=== PATIENT | female | born 1945 | race Caucasian/White ===

== ENCOUNTER → 2018-06-13 | Outpatient (CLI) | payer OTHER | LOC: RAD 01:16 | DX: Z12.31 Encounter for screening mammogram for malignant neoplasm of breast (principal) ==

== ENCOUNTER → 2019-06-17 | Outpatient (CLI) | payer OTHER | LOC: NUC 03:42 | DX: Z12.31 Encounter for screening mammogram for malignant neoplasm of breast (principal); M85.89 Other specified disorders of bone density and structure, multiple sites; Z78.0 Asymptomatic menopausal state ==

== ENCOUNTER → 2020-07-01 | Outpatient (CLI) | payer OTHER | LOC: BC 11:30 | PROVIDERS: ATTEND Obstetrics & Gynecology | DX: Z12.31 Encounter for screening mammogram for malignant neoplasm of breast (principal) ==

== ENCOUNTER → 2020-07-06 | Outpatient (CLI) | payer OTHER | LOC: ULTRA 11:25 | PROVIDERS: ATTEND Obstetrics & Gynecology | DX: N60.01 Solitary cyst of right breast (principal) ==

== ENCOUNTER → 2021-01-13 | Outpatient (CLI) | payer OTHER | LOC: BC 08:45 | PROVIDERS: ATTEND Obstetrics & Gynecology | DX: N60.01 Solitary cyst of right breast (principal) ==

== ENCOUNTER → 2021-01-21 | Outpatient (CLI) | payer OTHER ==
--- NOTE | 2021-01-26 14:07 | PATH ---
[facility] [address] [place] [address] PATHOLOGY RPT PROCEDURE Name: CECI BARAJAS Room #: REG MAU M.R.#: [id number] Admission: 01/21/21 Date of : 45 Discharge: Report #: [id number] Path Case #: [id number] [facility] Accession Number: [id number] . 01 Material submitted: . breast - RIGHT BREAST MASS 7 O'CLOCK 6 CM FN. Modifiers: right, 7:00, 6CM FN . 01 Clinical history: . US/MAMMOTOME BREAST BIOPSY/RIGHT BREAST MASS . 02 Diagnosis: Breast, right breast mass 7:00, 6 cm from nipple, ultrasound guided needle core biopsy: - POORLY DIFFERENTIATED INVASIVE DUCTAL ADENOCARCINOMA, THOMAS GRADE 3 OF 3 MEASURING 0.8 CM IN CONTIGUOUS LENGTH IN A SINGLE CORE. (IUV:pit; 01/22/2021) QTP 01/22/2021 1404 Local . 02 Comment: Specimen type:Ultrasound guided needle core biopsy Tumor site:Right breast mass 7:00 6 cm from nipple Tumor quantitation:0.8 cm Histologic type:Invasive ductal carcinoma Histologic grade:Poorly differentiated, Thomas grade 3 Tubules, nuclei and mitoses:3, 3 and 2 respectively LVSI:Not identified Microcalcifications:Not identified Markers:ER, IA, HER-2/BORA and Ki-67 Block:A2 . Co-review: Labor Representative slide (A1-13) by Dr. Lizbeth Lynch who concurs with my diagnosis. . . Properly controlled immunohistochemical stains are performed on block A1 and included AE1/AE3, as well as smooth muscle myosin heavy chain. AE1/AE3 shows strong reactivity within the entire malignancy. There are no myoepithelial cells identified on the smooth muscle myosin heavy chain immunohistochemical stain. Findings support the diagnosis rendered. . Findings are telephoned to Ms. Novak in our breast center at 01:15 pm on 01/22/2021. (IUV:pit; 01/22/2021) . . . [address] [address] PATHOLOGY RPT PROCEDURE Name: ELACECI VERONICA Room #: REG MAU [place]#: [id number] Admission: 01/21/21 Date of : 45 Discharge: Report #: [id number] Path Case #: [id number] Addendum: . This addendum is issued subsequent to reviewing a properly controlled p63 immunohistochemical stain performed on block A1. It shows rare cells within the malignant neoplasm with nuclear reactivity. No reactivity is identified surrounding the malignant neoplasm consistent with the lack of myoepithelial cells. The originally rendered diagnosis remains unchanged. (IUV/db; 01/26/2021) . Professional services performed by [facility] at [facility], [address] [facility], [place] [address]. Technical services performed by [facility] at [address] [place] [address], [address], [place] [address]. LBQ/01/26/2021 Addendum Electronically Signed by Dina Wolff MD, Pathologist . 02 Electronically signed: . Dina Wolff MD, Pathologist NPI- [id number] . 01 Gross description: . The specimen is received in formalin, labeled "Ceci Barajsa, right breast 7:00 6 cm from nipple" received as 4 soft hester-yellow tissue cores measuring up to 1.3 cm x 0.2 cm. The specimen is entirely submitted A1-A2. The specimen is removed from the patient at 0835 hours and placed in formalin at 0835 hours on , January 21, 2021. The specimen is removed from formalin at 11:30pm. The specimen is in formalin for greater than 6 hours and less than 72 hours. ([facility]; 01/21/2021) . ELIO/ELIO 01/21/2021 1932 Local . 02 Pathologist provided ICD-10: C50.911 . 02 CPT . 108754, [id number], [id number] Specimen Comment: A courtesy copy of this report has been sent to [phone] Specimen Comment: [phone] Specimen Comment: Report sent to / DR MANCUSO Performed at: [address], [place], [place] [id number] MD Rosales Edwards MD Phone: [phone] Performed at: 02 [facility] [address] [facility], [place], [place] [id number] MD Dina Wolff MD Phone: [phone]
== END | disposition home or self-care (01) ==
LOC: ULTRA 07:31
PROVIDERS: ATTEND Obstetrics & Gynecology
DX: C50.911 Malignant neoplasm of unspecified site of right female breast (principal); R92.1 Mammographic calcification found on diagnostic imaging of breast